=== PATIENT | male | born 1970 | race African-American/Black ===

== ENCOUNTER 2017-10-31 15:22 | Emergency (ER) | payer MEDICAID ==
[~2017-10-31] VITALS: Ht 180.3 cm; Wt 109.0 kg
[2017-10-31 15:51] VITALS: BP 167/88; PULSE 67; RESP 20; TEMP 98.8; O2SAT 99
[2017-10-31] MEDS ORDERED: METF500T PO (15:53)
--- NOTE | 2017-10-31 16:54 | RADRPT ---
EXAM DATE/TIME: 10/31/2017 16:06 [place] COMPARISON: No previous studies available for comparison. INDICATIONS : Letf knee pain fro about 6-7 hours. MEDICAL HISTORY : None. SURGICAL HISTORY : None. ENCOUNTER: Initial ACUITY: 1 day PAIN SCORE: 5/10 LOCATION: Left patella area FINDINGS: Four view examination of the left knee demonstrates no evidence of fracture or dislocation. Bony min eralization is normal. The articular surfaces are intact. The suprapatellar soft tissues have a nor mal configuration. CONCLUSION: Negative exam. No fracture or effusion. Mathieu Bean MD on October 31, 2017 at 16:52 Board Certified Radiologist. This report was verified electronically.
--- NOTE | 2017-10-31 22:26 | PD ---
HPI Chief Complaint: Injury Time Seen by Provider: 22:13 Travel History International Travel<30 days: No Contact w/Intl Traveler<30days: No Traveled to known affect area: No History of Present Illness HPI 47-year-old male complains of left knee pain. Patient states that he twisted his left knee this morning. Patient states the pain is sharp pain localized anterior aspect of the left knee. Patient denies any pain radiation. Patient states her pain is worse with weightbearing. On a scale from 1-10 the pain is a 7. PFSH Past Medical History Diabetes: Yes Patient Takes Glucophage: No Hypertension: Yes Medical other: Yes (Right ACL repair, right hip repair) Past Surgical History Surgical History: No Previous Surgery Social History Alcohol Use: Yes Tobacco Use: No Substance Use: No Allergies-Medications (Allergen,Severity, Reaction): Coded Allergies: No Known Allergies (Verified Allergy, Unknown, 10/31/17) Reported Meds & Prescriptions Reported Meds & Active Scripts Active Reported Metformin (Metformin HCl) 500 Mg Tab 500 Mg PO DAILY With a meal Review of Systems General / Constitutional: No: Fever Eyes: No: Visual changes HENT: No: Headaches Cardiovascular: No: Chest Pain or Discomfort Respiratory: No: Shortness of Breath Gastrointestinal: No: Abdominal Pain Genitourinary: No: Dysuria Musculoskeletal: Positive: Pain Skin: No Rash Neurologic: No: Weakness Psychiatric: No: Depression Endocrine: No: Polydipsia Hematologic/Lymphatic: No: Easy Bruising Physical Exam Narrative GENERAL: Well-nourished, well-developed patient. SKIN: Focused skin assessment warm/dry. HEAD: Normocephalic. EYES: No scleral icterus. No injection or drainage. NECK: Supple, trachea midline. No JVD or lymphadenopathy. CARDIOVASCULAR: Regular rate and rhythm without murmurs, gallops, or rubs. RESPIRATORY: Breath sounds equal bilaterally. No accessory muscle use. GASTROINTESTINAL: Abdomen soft, non-tender, nondistended. MUSCULOSKELETAL: No cyanosis, or edema. BACK: Nontender without obvious deformity. No CVA tenderness. Patient has moderate tenderness infrapatellar area with indentation of soft tissue below the patella. Patient is unable to extend the left knee. Data Data Last Documented VS Vital Signs Date Time Temp Pulse Resp B/P (MAP) Pulse Ox O2 Delivery O2 Flow Rate FiO2 10/31/17 15:51 98.8 67 20 167/88 (513) 99 Orders Orders Knee, Complete (4vws) (10/31/17 ) Radiology Film Requests (10/31/17 ) MDM Medical Decision Making Medical Screen Exam Complete: Yes Emergency Medical Condition: Yes Interpretation(s) Last Impressions Knee X-Ray 10/31/17 0000 Signed Impressions: Service Date/Time: Tuesday, October 31, 2017 16:06 - CONCLUSION: Negative exam. No fracture or effusion. Mathieu Bean MD Differential Diagnosis Differential diagnosis including ruptured patella tendon, fracture, dislocation. Narrative Course 47-year-old male with left knee injury. Examination consistent with ruptured patella tendon. X-ray shows no acute bony injury. Knee immobilizer given. Patient does not want crutches. Patient does not want to have surgery in [facility]. Patient wants to go home and see his own orthopedist at home. Diagnosis Primary Impression: Rupture of left patellar tendon Qualified Codes: S86.812A - Strain of other muscle(s) and tendon(s) at lower leg level, left leg, initial encounter Patient Instructions: General Instructions Additional Instructions: Patient wants to go home for follow up with his own orthopedist at home. Med/Other Pt SpecificInfo: Prescription(s) given Scripts Tramadol (Ultram) 50 Mg Tab 50 MG PO Q6H Y for PAIN, #12 TAB 0 Refills Prov: Norberto Chavez MD 10/31/17 Meloxicam (Mobic) 15 Mg Tab 15 MG PO DAILY for Pain, #30 TAB 0 Refills Prov: Norberto Chavez MD 10/31/17 Disposition: 01 DISCHARGE HOME Condition: Stable Norberto Chavez MD Oct 31, 2017 22:26
[2017-10-31] MEDS ORDERED: TRAM50 PO (22:35)
[2017-10-31] MEDS ORDERED: MOBI15TA PO (22:35)
== END 2017-10-31 22:55 | disposition home or self-care (01) ==
LOC: NEPD 15:22
DX: S76.112A Strain of left quadriceps muscle, fascia and tendon, initial encounter (principal); E11.9 Type 2 diabetes mellitus without complications; X50.1XXA Overexertion from prolonged static or awkward postures, initial encounter; Z79.84 Long term (current) use of oral hypoglycemic drugs
CPT/HCPCS: 73564; 99283; E0113; L1830